=== PATIENT | female | born 1985 | race Caucasian/White ===

== ENCOUNTER 2021-09-16 14:52 | Outpatient (CLI) | payer OTHER, SELFPAY ==
[2021-09-16 15:33] LABS: Basophils Absolute Auto 0.1 K/mm3 (0.0-0.1); Basophils Percent Auto 0.6 % (0.2-1.2); Eosinophils Absolute Auto 0.3 K/mm3 (0-0.3); Eosinophils Percent Auto 2.8 % (0-4.4); Hematocrit 38.4 % (37.0-47.0); Hemoglobin 12.7 g/dL (12.0-15.0); Immature Granulocyte Absolute 0.02 K/mm3 (0.00-0.031); Immature Granulocyte Percent A 0.2 % (0-0.5); Lymphocytes Absolute Auto 2.51 K/mm3 (0.9-3.2); Mean Corpuscular HGB Conc 33.1 g/dl (32-36); Mean Corpuscular Hemoglobin 31.4 pg (26-34); Mean Corpuscular Volume 94.8 fl (80-100); Mean Platelet Volume 9.9 fl (7.4-10.4); Monocytes Absolute Auto 0.5 K/mm3 (0.1-0.6); Monocytes Percent Auto 5.7 % (2.6-8.5); Neutrophils Absolute Auto 5.6 K/mm3 (1.3-6.7); Neutrophils Percent Auto 62.7 % (45.5-73.1); Platelet Count Result 234 k/mm3 (150-375); Red Blood Count 4.05 M/mm3 (4.2-5.4); Red Cell Distribution Width 11.7 % (11.5-14.5)
[2021-09-16 16:00] LABS: Iron 69 ug/dL (37-170)
[2021-09-16 16:09] LABS: Percent Iron Saturation 18 % (20-50)
[2021-09-16 16:22] LABS: Erythrocyte Sedimentation Rate 23 mm/hr (0-20)
[2021-09-16 16:26] LABS: Thyroid Stimulating Hormone 0.908 uIU/mL (0.465-4.680)
[2021-09-16 16:38] LABS: Free T4 Free Thyroxine 0.72 ng/mL (0.78-2.19)
[2021-09-16 16:43] LABS: Vitamin D 25 Hydroxy 36.9 ng/mL
[2021-09-19 07:28] LABS: LH <0.2 mIU/mL (***); Progesterone 0.4 ng/mL (***)
[2021-09-20 07:12] LABS: Thyroid Peroxidase Antibodies <1 IU/mL (<9)
[2021-09-22 21:47] LABS: Estradiol, Ultrasensitive 4 pg/mL
== END 2021-09-16 14:53 | disposition home or self-care (01) ==
LOC: ANHLAB 14:55
PROVIDERS: PCP Nurse Practitioner Adult Health; Visit Provider Nurse Practitioner Adult Health
DX: R63.5 Abnormal weight gain (principal); R61 Generalized hyperhidrosis; R53.81 Other malaise
CPT/HCPCS: 36415; 82306; 82670; 82728; 83001; 83002; 83540; 83550; 84144; 84439; 84443; 85025; 85652; 86376

== ENCOUNTER 2021-11-22 15:05 | Outpatient (CLI) | payer OTHER, SELFPAY ==
[2021-11-22 15:28] LABS: Basophils Percent Auto 0.4 % (0.2-1.2); Eosinophils Absolute Auto 0.2 K/mm3 (0-0.3); Eosinophils Percent Auto 2.7 % (0-4.4); Hematocrit 36.2 % (37.0-47.0); Hemoglobin 12.4 g/dL (12.0-15.0); Immature Granulocyte Absolute 0.04 K/mm3 (0.00-0.031); Immature Granulocyte Percent A 0.4 % (0-0.5); Lymphocytes Absolute Auto 2.77 K/mm3 (0.9-3.2); Lymphocytes Percent Auto 30.8 % (18.3-44.2); Mean Corpuscular HGB Conc 34.3 g/dl (32-36); Mean Corpuscular Hemoglobin 31.1 pg (26-34); Mean Corpuscular Volume 90.7 fl (80-100); Mean Platelet Volume 9.7 fl (7.4-10.4); Monocytes Absolute Auto 0.5 K/mm3 (0.1-0.6); Monocytes Percent Auto 5.9 % (2.6-8.5); Neutrophils Absolute Auto 5.4 K/mm3 (1.3-6.7); Neutrophils Percent Auto 59.8 % (45.5-73.1); Platelet Count Result 241 k/mm3 (150-375); Red Blood Count 3.99 M/mm3 (4.2-5.4); Red Cell Distribution Width 11.6 % (11.5-14.5)
[2021-11-22 15:37] LABS: Add Urine Microscopic? YES; Appearance Urine Clear (Clear); Bacteria Urine Trace /hpf; Bilirubin Urine Negative (Negative); Blood Urine 2+ (Negative); Color Urine Yellow (Yellow); Glucose Urine UA Negative (Negative); Ketones Urine Negative (Negative); Leukocyte Esterase Ur 2+ LEU/UL (Negative); Mucus Urine Rare /lpf; Nitrate Urine Negative (Negative); Protein Urine Negative (Negative); RBC Urine 21-50 /hpf (0-2); Squamous Epithelial Cell Urine Few /hpf (Few); Urobilinogen Urine Negative mg/dL (<2.0)
[2021-11-22 15:41] LABS: Alanine Aminotransferase 20 U/L (4-35); Albumin Level 4.3 g/dL (3.5-5.1); Alkaline Phosphatase 69 U/L (38-126); Anion Gap 10 mmol/L (8-16); Aspartate Amino Transferase 26 U/L (14-36); Bilirubin,Total 0.3 mg/dL (0.2-1.3); Blood Urea Nitrogen 16 mg/dL (7-17); Calcium 8.8 mg/dL (8.4-10.2); Carbon Dioxide 24 mmol/L (22-30); Chloride 104 mmol/L (98-107); Estimated Glomerular Filt Rate > 60; Glucose 112 mg/dL (65-110); Potassium 3.8 mmol/L (3.4-5.0); Sodium 138 mmol/L (137-145)
[2021-11-22 15:51] LABS: Hemoglobin A1C 5.3 % (<5.7)
[2021-11-22 16:29] LABS: Vitamin D 25 Hydroxy 34.8 ng/mL
[2021-11-22 16:39] LABS: Iron 66 ug/dL (37-170)
[2021-11-22 16:46] LABS: Folic Acid 13.1 ng/mL (2.76->20); Percent Iron Saturation 16 % (20-50)
[2021-11-22 16:55] LABS: Free T4 Free Thyroxine 0.62 ng/mL (0.78-2.19)
== END 2021-11-22 15:06 | disposition home or self-care (01) ==
PROVIDERS: PCP Nurse Practitioner Adult Health; Visit Provider Nurse Practitioner Adult Health
DX: E53.8 Deficiency of other specified B group vitamins (principal); R20.2 Paresthesia of skin; R63.1 Polydipsia; R39.9 Unspecified symptoms and signs involving the genitourinary system; R53.81 Other malaise
CPT/HCPCS: 36415; 80053; 81001; 82306; 82607; 82728; 82746; 83036; 83540; 83550; 83735; 84439; 84443; 85025

== ENCOUNTER 2021-12-13 17:13 | Emergency (ER) | payer OTHER, SELFPAY ==
[2021-12-13] VITALS (12 sets, daily range): BP systolic 118–124; BP diastolic 76–86; PULSE 61–89; RESP 11–24; TEMP 36.6–36.9; O2SAT 98–100
--- NOTE | ~2021-12-13 | XR_ITS ---
EXAMINATION: XR chest 2V EXAM DATE: 12/13/2021 18:02 INDICATION: CHEST TIGHTNESS,COVID+,11/23,DIZZY . TECHNIQUE: Frontal and lateral projections of the chest obtained and reviewed. There is no prior rut dy for comparison. FINDINGS: The lungs are clear. There are no pleural effusions. The cardiomediastinal silhouette is within normal limits. There is no pneumothorax suspected. The bones and soft tissues are unremarkab le. There are cholecystectomy clips. IMPRESSION: No acute cardiopulmonary findings. Reviewed, dictated and finalized at location G. [facility]
--- NOTE | ~2021-12-13 | CT_ITS ---
EXAMINATION: CTA chest PE protocol EXAM DATE: 12/13/2021 18:46 INDICATION: chest pain, elevated dimer . TECHNIQUE: Spiral CTA of the chest (pulmonary arteries) was performed with 100 cc Omnipaque 350 intr avenous contrast injection. Images were acquired during the pulmonary arterial phase. Coronal maxi mum intensity projection 3D-reconstructions were created by the technologist on dedicated workstation . Axial, coronal and sagittal reformatted images were reviewed. The dose-length product (DLP) for t his examination was 221.98 mGy-cm. The exposure was tailored according to patient size (auto mA exp osure control), and iterative reconstruction (ASIR) was used as additional dose reduction technique. There is no prior study for comparison. FINDINGS: Pulmonary arteries are well opacified and without intraluminal filling defects. No thora cic aortic dissection. The lungs are clear. There are no pleural or pericardial effusions. Trach eobronchial tree is patent. There is no mediastinal, hilar or axillary lymphadenopathy. There is no pneumothorax. Heart normal in size. No evidence of coronary arterial calcification. There are cholecystectomy clips. There is thoracic spondylosis without osteoblastic or osteolytic lesions tanner ntified. IMPRESSION: 1. Unremarkable CT pulmonary examination. Reviewed, dictated and finalized at location G. J2EE CONSULTANT
--- NOTE | 2021-12-13 17:31 | ECG_ITS ---
Measurements Intervals [place] Rate: 62 P: 49 WA: 135 QRS: 69 QRSD: 77 T: 47 QT: 457 QTc: 467 Interpretive Statements SINUS RHYTHM BASELINE ARTIFACT- I, III, AVR, AVL NORMAL ECG Electronically Signed On 12-13-2021 20:39:35 [employer] by Arnaldo Trinidad D.O.
--- NOTE | 2021-12-13 17:37 | ED.CHESTPAIN ---
HPI - Chest Pain General Chief Complaint: Chest Pain Stated Complaint: COVID+ URI,CHEST TIGHTNESS Time Seen by Provider: 12/13/21 17:37 Source: patient Mode of arrival: ambulatory Limitations: no limitations History of Present Illness HPI narrative: Patient is a previously healthy 36-year-old female who presents for evaluation of chest pressure, dizziness. Patient states that she awakened this morning with a dull, aching chest pressure over the center of her chest. Pain has been present and constant for the past 8 hours. No radiation to the jaw, neck, shoulders, back or lower flanks. Patient does state that when she takes a deep breath she feels left-sided chest pain. She feels mildly short of breath with exertion. No dizziness currently. When she was experiencing dizziness, she denied any room spinning sensation. No vision changes, nausea or vomiting. Patient reports she had a positive Covid test on November 23, has had loss of sense of taste and smell since that time. She never required hospitalization for Covid. This is her first ER visit for her symptoms. Patient states that prior to her Covid diagnosis she was seen by her primary care physician who diagnosed her with hypothyroidism and had ordered a thyroid ultrasound which she has not had yet. Patient denies any fever, chills. She reports productive cough, rhinorrhea, lingering congestion. She denies sore throat. No nausea, vomiting or abdominal pain. No rashes. No dysuria or hematuria Related Data Allergies Allergy/AdvReac Type Severity Reaction Status Date / Time Penicillins Allergy Hives Verified 10/02/20 09:51 Review of Systems Review of Systems: CONSTITUTIONAL: Denies fever, chills, or sweats. EYES: Denies visual changes, redness, or discharge. ENT: Reports rhinorrhea, congestion CARDIOVASCULAR: Reports central chest pain, left-sided chest pain without palpitations, denies calf or leg edema RESPIRATORY: Reports cough and shortness of breath GASTROINTESTINAL: Denies abdominal pain, nausea, vomiting, or diarrhea. GENITOURINARY: Denies dysuria or hematuria. SKIN: Denies rash or itching. MUSCULOSKELETAL: Denies back pain, joint pain, or myalgia. NEUROLOGIC: Denies headache, numbness, or weakness. FOR[facility]LY [facility] Past Medical History Medical History (Updated 12/13/21 @ 19:02 by Marianne Harvey MD) Cholecystectomy planned 2009 History of miscarriage 2014 Surgical History Surgical History (Updated 10/02/20 @ 09:52 by Coreen Espinoza) H/O dilation and curettage 2014 Family History Family History (Updated 10/02/20 @ 09:53 by Coreen Espinoza) Grandparent Diabetes mellitus Cerebrovascular accident Mother Hypertension Social History Social History (Updated 10/02/20 @ 09:53 by Coreen Espinoza) Smoking status: Never smoker Alcohol intake: never Substance use: never Exam Narrative: GENERAL: Awake, alert, conversant HEAD: Normocephalic, atraumatic. EYES: 2+ PERRLA and EOMI. ENT: Nares clear, no rhinorrhea or epistaxis. Mucous membranes moist. NECK: Supple. CHEST: No respiratory distress, breathing even and non labored, no chest wall tenderness HEART: Regular rate, sinus rhythm ABDOMEN:Non distended, non tender EXTREMITIES: Normal range of motion. No edema.No calf tenderness. SKIN: Warm, dry, no rash. NEURO:No focal deficits. Alert and oriented x3 Course Vital Signs Vital signs: Vital Signs Temperature 36.9 C 12/13/21 17:17 Pulse Rate 73 12/13/21 17:17 Respiratory Rate 16 12/13/21 17:17 Blood Pressure 122/77 12/13/21 17:17 Pulse Oximetry 99 12/13/21 17:17 Temperature 36.6 C 12/13/21 17:30 Pulse Rate 89 12/13/21 18:02 Respiratory Rate 24 H 12/13/21 18:02 Blood Pressure 124/86 12/13/21 17:47 Pulse Oximetry 99 12/13/21 18:02 MDM - Chest Pain MDM Narrative Medical decision making narrative: Patient presenting for evaluation of chest pain that has been present for over 8 hours at the time of
--- NOTE | 2021-12-13 17:40 | PC.NURSE ---
Called lab and spoke to Tonja to add on D-Dimer, BNP
--- NOTE | 2021-12-13 17:44 | PC.NURSE ---
EDP at bedside
[2021-12-13 17:46] LABS: Basophils Absolute Auto 0.1 K/mm3 (0.0-0.1); Basophils Percent Auto 0.5 % (0.2-1.2); Eosinophils Absolute Auto 0.1 K/mm3 (0-0.3); Eosinophils Percent Auto 1.4 % (0-4.4); Hematocrit 36.4 % (37.0-47.0); Hemoglobin 12.5 g/dL (12.0-15.0); Immature Granulocyte Absolute 0.03 K/mm3 (0.00-0.031); Immature Granulocyte Percent A 0.3 % (0-0.5); Lymphocytes Absolute Auto 2.87 K/mm3 (0.9-3.2); Lymphocytes Percent Auto 29.3 % (18.3-44.2); Mean Corpuscular HGB Conc 34.3 g/dl (32-36); Mean Corpuscular Hemoglobin 30.9 pg (26-34); Mean Corpuscular Volume 89.9 fl (80-100); Mean Platelet Volume 10.3 fl (7.4-10.4); Monocytes Absolute Auto 0.6 K/mm3 (0.1-0.6); Monocytes Percent Auto 6.4 % (2.6-8.5); Neutrophils Absolute Auto 6.1 K/mm3 (1.3-6.7); Neutrophils Percent Auto 62.1 % (45.5-73.1); Platelet Count Result 249 k/mm3 (150-375); Red Blood Count 4.05 M/mm3 (4.2-5.4); Red Cell Distribution Width 11.6 % (11.5-14.5); White Blood Count 9.8 K/mm3 (4.5-10.0)
[2021-12-13] MEDS: ASPIRIN 81 MG CHEWABLE TABLET 324 MG PO (17:48)
[2021-12-13 17:56] LABS: INR 0.9; Prothrombin Time 12.1 Seconds (11.1-14.7)
[2021-12-13 17:57] LABS: Alanine Aminotransferase 21 U/L (4-35); Albumin Level 4.5 g/dL (3.5-5.1); Alkaline Phosphatase 66 U/L (38-126); Anion Gap 6 mmol/L (8-16); Aspartate Amino Transferase 24 U/L (14-36); Bilirubin,Total 0.5 mg/dL (0.2-1.3); Blood Urea Nitrogen 15 mg/dL (7-17); Calcium 9.6 mg/dL (8.4-10.2); Carbon Dioxide 24 mmol/L (22-30); Chloride 108 mmol/L (98-107); Estimated CRCL calculation 76 ml/min; Estimated Glomerular Filt Rate > 60; Glucose 114 mg/dL (65-110); Lipase 126 U/L (23-300); Partial Thromboplastin Time 26.8 SECONDS (22.3-36.8); Sodium 138 mmol/L (137-145)
[2021-12-13 17:59] LABS: D Dimer 0.49 ug/mL (<0.48)
[2021-12-13 18:08] LABS: NT Pro B Type Natriuretic Pept 99 pg/mL (5-100)
[2021-12-13 18:09] LABS: Troponin I < 0.012 ng/mL (0.000-0.034)
== END 2021-12-13 19:28 | disposition home or self-care (01) ==
PROVIDERS: Emergency Provider Emergency Medicine; PCP Nurse Practitioner Adult Health
DX: R07.89 Other chest pain (principal); E03.9 Hypothyroidism, unspecified; Z86.16 Personal history of COVID-19
CPT/HCPCS: 36415; 71046; 71275; 80053; 81025; 83690; 83880; 84443; 84484; 85025; 85380; 85610; 85730; 93005; 99284; A9270; Q9967

== ENCOUNTER 2021-12-30 11:10 | Outpatient (CLI) | payer OTHER, SELFPAY ==
--- NOTE | ~2021-12-30 | US_ITS ---
EXAMINATION: US thyroid EXAM DATE: 12/30/2021 11:39 INDICATION: Abnormal thyroid function. TECHNIQUE: Multiple grayscale and Doppler images of the thyroid were obtained (by a technologist who performed the scan) and subsequently reviewed. Individual nodules and recommendations may be reporte d in accordance with TI-RADS system as designated by the 2017 ACR White Paper TI-RADS committee. The re is no prior study for comparison. FINDINGS: The right thyroid lobe measures 4.5 x 1.7 x 1.1 cm, the left measuring 4.2 x 1.5 x 1.2 cm. Relatively homogeneous thyroid echogenicity. Couple of small thyroid nodules measuring up to 4 mm, not likely c linically significant. IMPRESSION: 1. Unremarkable thyroid ultrasound exam. Reviewed, dictated and finalized at location G. WALS REPRESENTATIVE
== END 2021-12-30 11:11 | disposition home or self-care (01) ==
LOC: ANHIMG 11:16
PROVIDERS: PCP Nurse Practitioner Adult Health; Visit Provider Nurse Practitioner Adult Health
DX: R94.6 Abnormal results of thyroid function studies (principal)
CPT/HCPCS: 76536

== ENCOUNTER 2022-01-13 09:53 | Outpatient (CLI) | payer OTHER, SELFPAY ==
--- NOTE | 2022-01-13 11:00 | NEURO_ITS ---
Impression: # Complains of numbness of upper and lower extremities. # Normal nerve conduction study of upper and lower extremities. # Normal needle/EMG exam. # Possibility of higher involvement cannot be ruled out. Nerve Conduction Studies Anti Sensory Summary Table Stim Site NR Peak (ms) P-T Amp (?V) Site1 Site2 Delta-P (ms) Dist (cm) Zaki (m/s) Left Median Anti Sensory (2-3nd Digit) Wrist 2.4 74.3 Wrist 2-3nd Digit 2.4 14.0 58 Wrist 2.4 89.5 Wrist 2-3nd Digit 2.4 14.0 58 Right Median Anti Sensory (2-3nd Digit) Wrist 2.3 81.8 Wrist 2-3nd Digit 2.3 14.0 61 Wrist 2.2 77.7 Wrist 2-3nd Digit 2.3 14.0 61 Left Radial Anti Sensory (Base 1st Digit) Wrist 1.7 33.4 Wrist Base 1st Digit 1.7 0.0 Right Radial Anti Sensory (Base 1st Digit) Wrist 2.3 44.8 Wrist Base 1st Digit 2.3 0.0 Left Sup Fibular Anti Sensory (Ant Lat Mall) 14 cm 3.3 13.6 14 cm Ant Lat Mall 3.3 16.0 48 Right Sup Fibular Anti Sensory (Ant Lat Mall) 14 cm 3.5 13.7 14 cm Ant Lat Mall 3.5 16.0 46 Left Sural Anti Sensory (Lat Mall) Calf 3.4 25.1 Calf Lat Mall 3.4 16.0 47 Right Sural Anti Sensory (Lat Mall) Calf 3.9 15.9 Calf Lat Mall 3.9 16.0 41 Left Ulnar Anti Sensory (5th Digit) Wrist 1.9 64.7 Wrist 5th Digit 1.9 14.0 74 Right Ulnar Anti Sensory (5th Digit) Wrist 1.8 42.2 Wrist 5th Digit 1.8 14.0 78 Motor Summary Table Stim Site NR Onset (ms) O-P Amp (mV) Site1 Site2 Delta-0 (ms) Dist (cm) Zaki (m/s) Left Lateral Plantar Motor (ADM) Med Mall 4.5 2.8 Right Lateral Plantar Motor (ADM) Med Mall 4.4 1.5 Left Median Motor (Abd Poll Brev) Wrist 2.7 9.1 Elbow Wrist 4.1 26.0 63 Elbow 6.8 7.6 Right Median Motor (Abd Poll Brev) Wrist 2.5 7.5 Elbow Wrist 3.8 26.0 68 Elbow 6.3 3.7 Left Peroneal Motor (Vastus Med) Ankle 4.4 1.6 Popit Ankle 8.1 39.0 48 Popit 12.5 0.9 Right Peroneal Motor (Vastus Med) Ankle 4.7 2.0 Popit Ankle 6.4 35.0 55 Popit 11.1 1.5 Left Tibial Motor (Abd Johansen Brev) Ankle 4.1 2.2 Knee Ankle 7.5 40.0 53 Knee 11.6 2.3 Right Tibial Motor (Abd Johansen Brev) Ankle 4.0 3.8 Knee Ankle 7.9 39.0 49 Knee 11.9 3.9 Left Ulnar Motor (Abd Dig Minimi) Wrist 2.6 5.3 A Elbow Wrist 4.5 29.0 64 A Elbow 7.1 3.7 Right Ulnar Motor (Abd Dig Minimi) Wrist 2.3 4.3 A Elbow Wrist 4.2 28.0 67 A Elbow 6.5 3.8 F Wave Studies NR F-Lat (ms) L-R F-Lat (ms) Left Median (Mrkrs) (Abd Poll Brev) 25.32 0.44 Right Median (Mrkrs) (Abd Poll Brev) 25.75 0.44 Left Peroneal (Mrkrs) (EDB) 46.76 0.73 Right Peroneal (Mrkrs) (EDB) 47.49 0.73 Left Tibial (Mrkrs) (Abd Hallucis) 47.35 0.08 Right Tibial (Mrkrs) (Abd Hallucis) 47.27 0.08 Left Ulnar (Mrkrs) (Abd Dig Min) 24.78 1.00 Right Ulnar (Mrkrs) (Abd Dig Min) 25.79 1.00 EMG Side Muscle Nerve Root Ins Act Fibs Amp Dur Recrt Comment Right 1stDorInt Ulnar C8-T1 Nml Nml Nml Nml Nml Right Ext Indicis Radial (Post Int) C7-8 Nml Nml Nml Nml Nml Right Ext Digitorum Radial (Post Int) C7-8 Nml Nml Nml Nml Nml Right BrachioRad Radial C5-6 Nml Nml Nml Nml Nml Right PronatorTeres Median C6-7 Nml Nml
== END 2022-01-13 09:54 | disposition home or self-care (01) ==
PROVIDERS: PCP Nurse Practitioner Adult Health; Visit Provider Nurse Practitioner Adult Health
DX: R20.2 Paresthesia of skin (principal)
CPT/HCPCS: 95886; 95913

== ENCOUNTER 2022-03-16 13:30 | Outpatient (CLI) | payer OTHER, SELFPAY ==
[2022-03-16 14:24] LABS: Hematocrit 38.2 % (37.0-47.0); Hemoglobin 12.5 g/dL (12.0-15.0); Mean Corpuscular HGB Conc 32.7 g/dl (32-36); Mean Corpuscular Hemoglobin 30.9 pg (26-34); Mean Corpuscular Volume 94.3 fl (80-100); Mean Platelet Volume 10.2 fl (7.4-10.4); Platelet Count Result 226 k/mm3 (150-375); Red Blood Count 4.05 M/mm3 (4.2-5.4); Red Cell Distribution Width 11.6 % (11.5-14.5); White Blood Count 8.3 K/mm3 (4.5-10.0)
[2022-03-16 14:27] LABS: Alanine Aminotransferase 26 U/L (4-35); Albumin Level 4.4 g/dL (3.5-5.1); Alkaline Phosphatase 72 U/L (38-126); Anion Gap 9 mmol/L (8-16); Aspartate Amino Transferase 31 U/L (14-36); Bilirubin,Total 0.5 mg/dL (0.2-1.3); Blood Urea Nitrogen 15 mg/dL (7-17); Calcium 9.1 mg/dL (8.4-10.2); Carbon Dioxide 24 mmol/L (22-30); Chloride 102 mmol/L (98-107); Estimated Glomerular Filt Rate > 60; Glucose 145 mg/dL (65-110); Potassium 3.8 mmol/L (3.4-5.0); Sodium 135 mmol/L (137-145)
[2022-03-16 14:57] LABS: Thyroid Stimulating Hormone 0.727 uIU/mL (0.465-4.680)
[2022-03-16 15:37] LABS: Folic Acid > 20.0 ng/mL (2.76->20)
[2022-03-19 06:46] LABS: Thyroid Peroxidase Antibodies <1 IU/mL (<9)
== END 2022-03-16 13:31 | disposition home or self-care (01) ==
PROVIDERS: PCP Nurse Practitioner Adult Health; Visit Provider Nurse Practitioner Adult Health
DX: R23.2 Flushing (principal); E53.8 Deficiency of other specified B group vitamins
CPT/HCPCS: 36415; 80053; 82607; 82746; 84439; 84443; 85027; 86376

== ENCOUNTER 2022-03-30 09:53 | Outpatient (CLI) | payer OTHER, SELFPAY ==
[2022-03-30 10:55] LABS: Hemoglobin A1C 5.2 % (<5.7)
== END 2022-03-30 09:54 | disposition home or self-care (01) ==
LOC: ANHLAB 09:56
PROVIDERS: PCP Nurse Practitioner Adult Health; Visit Provider Nurse Practitioner Adult Health
DX: R73.9 Hyperglycemia, unspecified (principal)
CPT/HCPCS: 36415; 83036

== ENCOUNTER 2024-01-15 00:22 | Emergency (ER) | payer OTHER, SELFPAY ==
[2024-01-15 00:27] VITALS: BP 135/79; PULSE 81; RESP 17; TEMP 36.3; O2SAT 100
[2024-01-15] MEDS: SODIUM CHLORIDE 0.9% IV 1,000 ML 999 ML IV CONT (01:04)
--- NOTE | 2024-01-15 01:04 | ED.GENADULT ---
[facility] - General Adult General Chief complaint: Nausea/Vomiting/Diarrhea Stated complaint: n/v after taking pain meds Time Seen by Provider: 01/15/24 00:43 Source: patient Mode of arrival: ambulatory Limitations: no limitations History of Present Illness HPI narrative: This is a 38-year-old female who presents to the ED for chief complaint of nausea vomiting onset at 5:00 p.m. this evening. Patient reports that she had bunionectomy a couple of days ago. She has been taking Percocet 5 mg as prescribed. She called the office today because they were only helping for a couple of hours at a time. They instructed her to take 2 doses of the Percocet 5. She reports after this she had extreme nausea and numerous episodes of vomiting. Reports 18 episodes of vomiting without bleeding. Denies diarrhea. Reports some abdominal pain and cramping due to the vomiting. Denies fevers, chills or any further sites of pain. Related Data Home Medications Medication Instructions Recorded Confirmed bupropion HCl 150 mg 24 hr tablet, 150 mg PO QAM 02/10/23 extended release (Wellbutrin XL) Allergies Allergy/AdvReac Type Severity Reaction Status Date / Time Penicillins Allergy Hives Verified 01/15/24 00:30 Review of Systems Review of Systems: All systems as dictated in [facility] Past Medical History Medical History Cholecystectomy planned 2009 History of miscarriage 2014 Surgical History Surgical History H/O dilation and curettage 2014 Family History Family History Grandparent Diabetes mellitus Cerebrovascular accident Mother Hypertension Social History Social History (Updated 02/10/23 @ 12:28 by Margarita Bradley MA) Smoking status: Never smoker Alcohol intake: never Substance use: never Lack of Transportation: No Lack of Food: Never True Current Housing: I Have Housing Concerned About Future Housing: No Difficulty Paying Gas/Electric Bills: No Difficulty Paying for Meds: No Currently Unemployed: YES Education: Trade/Vocational Certificate Difficulty w/ Childcare or Family Care: No Living arrangements: with family Occupation/Education: occupation Gender identity (if verbalized by the patient): Female Sexual Orientation (if Verbalized by the Patient): Straight or Heterosexual Spiritual care concerns: No Agree to blood products: Yes Exam Narrative: GENERAL: Well-appearing, well-nourished, and in no acute distress. HEAD: Normocephalic, atraumatic. EYES: PERRLA and EOMI. ENT: Nares clear, no rhinorrhea or epistaxis. Mucous membranes moist. Oropharynx without tonsillar hypertrophy exudate or other lesions. NECK: Supple. No adenopathy or masses. CHEST: No respiratory distress. Clear to auscultation. No wheezes rales or rhonchi HEART: Regular rate and rhythm. No murmur heard. Normal peripheral pulses. ABDOMEN: Soft, nontender, nondistended, normal active bowel sounds. MSK: Normal range of motion. No edema. SKIN: Warm, dry, no rash. NEURO: Alert and oriented x3. No focal deficits. PSYCH: Normal mood and affect. Course Vital Signs Vital signs: Vital Signs Temperature 97.3 F L 01/15/24 00:27 Pulse Rate 81 01/15/24 00:27 Respiratory Rate 17 01/15/24 00:27 Blood Pressure 135/79 01/15/24 00:27 Pulse Oximetry 100 01/15/24 00:27 Oxygen Delivery Room Air 01/15/24 00:27 Temperature 97.3 F L 01/15/24 00:27 Pulse Rate 81 01/15/24 00:27 Respiratory Rate 17 01/15/24 00:27 Blood Pressure 135/79 01/15/24 00:27 Pulse Oximetry 100 01/15/24 00:27 Oxygen Delivery Room Air 01/15/24 00:27 Medical Decision Making MDM Narrative Medical decision making narrative: This is a 38-year-old female who presents to the ED for drug induced nausea and vomiting. Gail
[2024-01-15 01:05] LABS: Basophils Percent Auto 0.3 % (0.2-1.2); Eosinophils Percent Auto 0.2 % (0-4.4); Hematocrit 38.5 % (37.0-47.0); Hemoglobin 12.8 g/dL (12.0-15.0); Immature Granulocyte Absolute 0.02 K/mm3 (0.00-0.031); Immature Granulocyte Percent A 0.2 % (0-0.5); Lymphocytes Absolute Auto 1.54 K/mm3 (0.9-3.2); Lymphocytes Percent Auto 15.5 % (18.3-44.2); Mean Corpuscular HGB Conc 33.2 g/dl (32-36); Mean Corpuscular Hemoglobin 31.1 pg (26-34); Mean Corpuscular Volume 93.4 fl (80-100); Monocytes Absolute Auto 0.4 K/mm3 (0.1-0.6); Monocytes Percent Auto 3.9 % (2.6-8.5); Neutrophils Percent Auto 79.9 % (45.5-73.1); Platelet Count Result 186 k/mm3 (150-375); Red Blood Count 4.12 M/mm3 (4.2-5.4); Red Cell Distribution Width 11.7 % (11.5-14.5)
[2024-01-15] MEDS: ONDANSETRON INJ 4 MG/2 ML VIAL IV PUSH (01:05)
[2024-01-15] MEDS: KETOROLAC 15 MG/ML VIAL (*BKC) IV PUSH (01:05)
[2024-01-15 01:31] LABS: Alanine Aminotransferase 133 U/L (6-35); Albumin Level 4.2 g/dL (3.5-5.1); Alkaline Phosphatase 132 U/L (38-126); Anion Gap 7 mmol/L (8-16); Aspartate Amino Transferase 111 U/L (14-36); Bilirubin,Total 0.8 mg/dL (0.2-1.3); Blood Urea Nitrogen 18 mg/dL (7-17); Calcium 9.1 mg/dL (8.4-10.2); Carbon Dioxide 23 mmol/L (22-30); Chloride 103 mmol/L (98-107); Estimated CRCL calculation 75 ml/min; Estimated Glomerular Filt Rate > 60; Glucose 107 mg/dL (65-110); Lactic Acid Reflex 0.8 mmol/L (0.7-2.0); Potassium 3.9 mmol/L (3.4-5.0); Sodium 133 mmol/L (137-145)
--- NOTE | 2024-01-15 02:00 | PC.NURSE ---
Pt given 2 packets of vida crackers and a starry to drink.
[2024-01-15 02:51] VITALS: BP 129/89; PULSE 70; RESP 16; O2SAT 98
== END 2024-01-15 02:53 | disposition home or self-care (01) ==
PROVIDERS: Emergency Provider Physician Assistant; PCP Physician Assistant
DX: R11.2 Nausea with vomiting, unspecified (principal); T50.995A Adverse effect of other drugs, medicaments and biological substances, initial encounter; Z90.49 Acquired absence of other specified parts of digestive tract
CPT/HCPCS: 36415; 80048; 80076; 83605; 85025; 96361; 96374; 96375; 99284; J1885; J2405; J7030

== ENCOUNTER 2024-02-10 12:35 | Emergency (ER) | payer OTHER, SELFPAY ==
[2024-02-10 12:49] VITALS: BP 118/67; PULSE 91; RESP 18; TEMP 36.6; O2SAT 99
--- NOTE | 2024-02-10 13:44 | ED.WOUNDLAC ---
HPI - Wound/Laceration General Chief Complaint: Wound/Laceration Stated Complaint: surgical wound check Time Seen by Provider: 02/10/24 13:44 Source: patient, RN notes reviewed and old records reviewed Mode of arrival: ambulatory Limitations: no limitations History of Present Illness HPI narrative: 38-year-old female presents to the [facility] with concerns for a surgical wound infection. Patient reports that she had bunion surgery 4 weeks ago, January 11. States 2 weeks ago she was treated for infection to the wound site with Bactrim, only complaining 3 days worth because it was upsetting her stomach and making her nauseous. Last Monday it started looking infected again, restarted the Bactrim and yesterday started applying gentamicin ointment. States that she tried calling the surgeon on but she is not available. Patient states she does have an appointment Monday with her for [facility] complaints of increased pain, unable to wear the her walking boot, unable to bear weight. Treatments prior to arrival: other (Gentamicin ointment, Bactrim) Related Data Home Medications Medication Instructions Recorded Confirmed bupropion HCl 150 mg 24 hr tablet, 150 mg PO QAM 02/10/23 extended release (Wellbutrin XL) loratadine 10 mg tablet (Claritin) 10 mg PO DAILY 02/10/24 02/10/24 Allergies Allergy/AdvReac Type Severity Reaction Status Date / Time Penicillins Allergy Hives Verified 02/10/24 13:23 Review of Systems Review of Systems: All systems reviewed & are unremarkable except as noted in HPI and below Constitutional: Constitutional: Reports no additional constitutional complaints Eyes: Eyes: Reports no additional eye complaints ENT: Reports system reviewed and no additional complaints, except as documented Cardiovascular: Cardiovascular: Reports no additional cardiovascular complaints, Denies chest pain and Denies dyspnea Respiratory: Respiratory: Reports no additional respiratory complaints, Denies chest congestion, Denies cough and Denies dyspnea Gastrointestinal: Gastrointestinal: Reports no additional gastrointestinal complaints, Denies abdominal pain, Denies nausea and Denies vomiting Musculoskeletal: Musculoskeletal: Reports as per HPI and Reports other (Right foot) Integumentary/Breasts: Skin/Breast: Reports as per HPI, Reports swelling, Reports erythema, Reports skin swelling and Reports wounds Neurologic: Reports system reviewed and no additional complaints, except as documented Psychiatric: Psychiatric: Reports no additional psychiatric complaints Allergic/Immunologic: Allergic/Immunologic: Reports no additional allergic/immunologic complaints PMFSH Past Medical History Medical History Cholecystectomy planned 2009 History of miscarriage 2014 Surgical History Surgical History H/O dilation and curettage 2014 H/O foot surgery Bunionectomy 01/12/2024 Right foot Family History Family History Grandparent Diabetes mellitus Cerebrovascular accident Mother Hypertension Social History Social History Smoking status: Never smoker Alcohol intake: never Substance use: never Lack of Transportation: No Lack of Food: Never True Current Housing: I Have Housing Concerned About Future Housing: No Difficulty Paying Gas/Electric Bills: No Difficulty Paying for Meds: No Currently Unemployed: YES Education: Trade/Vocational Certificate Difficulty w/ Childcare or Family Care: No Living arrangements: with family Occupation/Education: occupation Gender identity (if verbalized by the patient): Female Sexual Orientation (if Verbalized by the Patient): Straight or Heterosexual Spiritual care concerns: No Agree to blood pro
== END 2024-02-10 14:05 | disposition short-term general hospital (02) ==
PROVIDERS: Emergency Provider Nurse Practitioner
DX: T81.49XA Infection following a procedure, other surgical site, initial encounter (principal); L03.115 Cellulitis of right lower limb
CPT/HCPCS: 99212; G0463

== ENCOUNTER 2024-12-11 08:42 | Emergency (ER) | payer OTHER, SELFPAY ==
--- NOTE | 2024-12-11 08:45 | ED_ITS ---
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 She has been taking [id number] medications with moderate relief. She reports worst of her symptoms are body aches and sore throat. She is not in any distress. She voices no other concerns or complaints today. She denies any injury or trauma Related Data Home Medications ?Medication ?Instructions ?Recorded ?Confirmed ?Last Taken ?Type bupropion HCl 150 mg 24 hr tablet, 150 mg PO QAM 02/10/23 Unknown History extended release (Wellbutrin XL) loratadine 10 mg tablet (Claritin) 10 mg PO DAILY 02/10/24 02/10/24 Unknown History Allergies Allergy/AdvReac Type Severity Reaction Status Date / Time Penicillins Allergy Mild Hives Verified 12/11/24 08:55 Review of Systems Review of Systems: All systems reviewed & are unremarkable except as noted in HPI and below Constitutional: Constitutional: Reports no additional constitutional complaints, Reports body ache(s), Reports chills, Reports headache(s) and Reports lethargy ENT: Reports system reviewed and no additional complaints, except as documented, Reports nasal congestion, Reports nasal discharge and Reports sore throat Cardiovascular: Cardiovascular: Reports no additional cardiovascular complaints Respiratory: Respiratory: Reports no additional respiratory complaints and Reports cough Gastrointestinal: Gastrointestinal: Reports no additional gastrointestinal complaints PMFSH Past Medical History Medical History Cholecystectomy planned 2009 History of miscarriage 2014 Surgical History Surgical History H/O foot surgery Bunionectomy 01/12/2024 Right foot H/O dilation and curettage 2014 Family History Family History Grandparent Diabetes mellitus Cerebrovascular accident Mother Hypertension Social History Social History Smoking status: Never smoker Alcohol intake: never Substance use: never Lack of Transportation: No Lack of Food: Never True Current Housing: I Have Housing Concerned About Future Housing: No Difficulty Paying Gas/Electric Bills: No Difficulty Paying for Meds: No Currently Unemployed: YES Education: Trade/Vocational Certificate Difficulty w/ Childcare or Family Care: No Living arrangements: with family Occupation/Education: occupation Gender identity (if verbalized by the patient): Female Sexual Orientation (if Verbalized by the Patient): Straight or Heterosexual Spiritual care concerns: No Agree to blood products: Yes Comments At the time of my signature, I reviewed and agree with the nursing past medical, surgical, social, and family history. There is no relevant family history pertinent to the patient complaint. Exam Const: General: cooperative, no acute distress, alert and awake Orientation/consciousness: oriented to person, oriented to place and oriented to time HENMT: Head: normal to inspection Ears: TM's normal bilaterally Mouth: Yes moist mucous membranes Throat: posterior oropharynx abnormal erythema Resp: Effort & Inspection: normal respiratory effort and able to speak in complete sentences Auscultation: clear to auscultation bilaterally, no crackles, no rales, no rhonchi and no wheezes Cardio: Palpation: normal PMI Rate: regular rate Rhythm: regular rhythm Heart sounds: S1 normal heart sound present and S2 normal heart sound present Neuro: General: oriented to person, oriented to place and oriented to time Cranial nerves: Yes CN's II-XII intact bilaterally Psych: Appearance: grossly normal Thought process: Normal thought process present Insight: Good insight present (Psych) Judgement: Good judgement present (Psych) Course Course Level of Care: [facility] Vital Signs Vital signs: Reviewed MDM - URI/Sore Throat MDM Narrative Medical decision making narrative: negative flu, negative COVID, negative strep. Culture pending. Symptoms likely viral in origin. Supportive care measures discussed. Discharge instructions reviewed with patient, as well as provided in writing per nursing staff. The instructions also include specific and strict return/GO TO THE ER as well as f/u information. All questions have been answered, and the patient deny any further questions with discharge and discharge plan. Some parts of this dictation were generated by voice recognition software and may contain typographical and/or grammatical inaccuracies. Differential Diagnosis Differential diagnosis: Likely upper respiratory infection, otitis media, sinusitis, viral infection, influenza and pharyngitis Medical Records Attestation: I reviewed the patient's medical records. Lab Data Attestation: I reviewed the patient's lab results. Discharge Plan Discharge Clinical Impression: Viral infection Patient Disposition: Home, Self-Care Condition: Stable Instructions: Antibiotic Form, Viral Syndrome (ED) Additional Instructions: use [id number] medications to treat your symptoms. Follow package instru ctions. Emergency department for new or worse symptoms, follow-up with primary care provider Patient Language: Barbadian Prescriptions: No Action loratadine [Claritin] 10 mg Tablet 10 mg PO DAILY bupropion HCl [Wellbutrin XL] 150 mg tablet extended release 24 hr 150 mg PO QAM norethindrone-e.estradiol-iron [Ladan Fe 12/02 (28)] 1 mg-20 mcg (21)/75 mg (7) tablet 1 tablet PO DAILY Qty: 84 0RF Follow-up/Referrals: Lokesh,Saray Garcia MD [Primary Care Provider] - Stand Alone Forms: Work/School Release IP Time of Disposition: 09:30
[2024-12-11 08:55] VITALS: BP 109/68; PULSE 69; RESP 18; TEMP 36.4; O2SAT 99
--- OUTSIDE RECORDS SUMMARY | 2024-12-11 09:03 | XMS_ITS | Referral Summary ---
Author Organization [facility] Healthcare Address [address] [place] [address] Care Team Providers Care Group Work Program Aide Name Role Phone Margarita Toledo Primary Care Provider [phone] Monse Leon DPM Unavailable [phone] Allergies Active Allergy Reactions Criticality Noted Date Comments Penicillins Hives Medium Reaction: Hives, Medications norethindrone ac-eth estradiol (12/02, ,) 1-20 mg-mcg per tablet take 1 tablet by oral route every day 0 0 7 Active buPROPion XL (WELLBUTRIN XL) 300 mg 24 hr tablet Take 1 tablet (300 mg total) by mouth daily 3 Active loratadine (CLARITIN) 10 mg tablet Take 1 tablet (10 mg total) by mouth daily Active mv-min/iron/folic /calcium/vitK (WOMEN'S MULTIVITAMIN ORAL) Take by mouth daily Active Lacto no.76/Bifido/FOS/ larch (WOMEN'S PROBIOTIC ORAL) Take by mouth daily Active diphenhydrAMINE 25 mg capsule Take 1 tablet/capsu le (25 mg total) by mouth every 6 (six) hours as needed for itching Active oxyCODONE-acetami nophen (PERCOCET) 5-325 mg per tabletIndications :Pain Take 1 tablet by mouth every 4 (four) hours as needed for pain 40 tablet 4 Active aspirin 325 mg tablet Take 1 tablet (325 mg total) by mouth daily 30 tablet 4 Active Active Problems Problem Noted Date Diagnosed Date Bunion of great toe of right foot 12/21/2023 Acquired hallux valgus of right foot 12/21/2023 Metatarsalgia of right foot 12/21/2023 Bunion of great toe of left foot 05/25/2023 Acquired hallux valgus of left foot 05/25/2023 Metatarsalgia of left foot 05/25/2023 Persistent headaches 10/11/2017 Abnormal x-ray of neck 10/11/2017 Acute left-sided low back pain without sciatica 09/29/2017 Acute pain of left shoulder 09/29/2017 Neck pain on left side 09/29/2017 Immunizations Name Administration Dates Next Due Influenza, Quadrivalent, Spl it, Preservative Free, Intramuscular 09/29/2017 Social History Tobacco Use Types Packs/Day Years Used Date Smoking Tobacco: Never Smokeless Tobacco: Never Tobacco Cessation:Counseling Given: Not Answered Alcohol Use Standard Drinks/Week Comments No 0 (1 standard drink = 0.6 oz pur e alcohol) AUDIT-C Answer Date Recorded Q1: How often do you have a drink containing alcohol? Never 01/12/2024 Q2: How many drinks containi ng alcohol do you have on a typical day when you are drinking? Patient does not drink Q3: How often do you have si x or more drinks on one occasion? Never 01/12/2024 Personal Safety Answer Date Recorded Have you ever been in or are you currently in a harmful physical or emotional relationship or is someone making you feel afraid or unsafe? 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 Gender Identity Not on file Sexual Orientation Not on file Last Filed Vital Signs Vital Sign Reading Time Taken Comments Blood Pressure 99/67 02/10/2024 8:00 PM CDT Pulse 79 02/10/2024 8:20 PM CDT Temperature 36.9 ??C (98.4 ??F) 02/10/2024 7:19 PM CD T Respiratory Rate 16 02/10/2024 7:14 PM CDT Oxygen Saturation 100% 02/10/2024 8:20 PM CDT Inhaled Oxygen Concentration - - Weight 61.2 kg (135 lb) 02/10/2024 7:14 PM CDT Height 165.1 cm (5' 5 ) 02/10/2024 7:14 PM CDT Body Mass Index 22.47 02/10/2024 7:14 PM CDT Plan of Treatment Not on file Medical Devices Implanted Type Area Nurses Educator Device Identifier Shelf Expiration Date Model / Serial / Lot [employer] Screw Bone Lapiplasty Select Ti Sk34 - [id number] Implanted:Qty: 1 on 06/16/2023 by Monse Leon DPM at [facility] Left: Foot [employer] [id number] 01/02/2028 SK34 / / [id number] [employer] Screw Bone Compression Cannulated Full Thread Locking Fastpitch 2.7mm Ti Sd22 - [id number] Implanted:Qty: 1 on 06/16/2023 by Monse Leon DPM at [facility] Left: Foot [employer] [id number] 02/29/2028 SD22 / / [id number] [employer] Screw Bone Compression Cannulated Full Thread Locking Fastpitch 2.7mm Ti Sd22 - [id number] Implanted:Qty: 1 on 06/16/2023 by Monse Leon DPM at [facility] Left: Foot [employer] [id number] 03/15/2028 SD22 / / [id number] [employer] Max Vpc 2.5mm 16mm Cannulated Compression Headless Full Thread [id number] - [id number] Implanted:Qty: 1 on 06/16/2023 by Monse Leon DPM at [facility] Left: Foot [employer] [id number] / / [employer] Screw Bone Compression Cannulated St Full Thread Locking Max Vpc 2.5x12mm Ti [id number] - [id number] Implanted:Qty: 1 on 06/16/2023 by Monse Leon DPM at [facility] Left: Foot [employer] [id number] / / [employer] Screw Bone Compression Cannulated St Full Thread Locking Max Vpc 2.5x12mm Ti [id number] - [id number] Implanted:Qty: 1 on 01/12/2024 by Monse Leon DPM at [facility] Right: Foot [employer] [id number] / / [employer] Screw Bone Compression Cannulated Full Thread Locking Fastpitch 2.7mm Ti Sd22 - [id number] Implanted:Qty: 1 on 01/12/2024 by Monse Leon, PAULINAM at [facility] Right: Foot [employer] 12/11/2028 SD22 / / [id number] [employer] Screw Bone Compression Cannulated Full Thread Locking Fastpitch 2.7mm Ti Sd22 - [id number] Implanted:Qty: 1 on 01/12/2024 by Monse Leon DPM at [facility] Right: Foot [employer] [id number] 12/11/2028 SD22 / / [id number] [employer] Screw Bone Lapiplasty Select Ti Sk34 - [id number] Implanted:Qty: 1 on 01/12/2024 by Monse Leon DPM at [facility] Right: Foot [employer] [id number] 06/13/2028 SK34 / / [id number] [employer] Max Vpc 2.5mm 16mm Cannulated Compression Headless Full Thread [id number] - [id number] Implanted:Qty: 1 on 01/12/2024 by Monse Leon, PAULINAM at [facility] Right: Foot [employer] [id number] / / Insurance IDPA Care Teams Group Work Program Aide Relationship Specialty Start Date End Date Margarita Toledo PA [address] [place] [address] PCP - General 06/05/23 Monse Leon, THERON [address] [place] [id number] Consulting Physician Foot and Ankle Surg 06/16/23
--- OUTSIDE RECORDS SUMMARY | 2024-12-11 09:03 | XMS_ITS | Clinical Summary ---
Author Organization [facility] Address [address] [place] [address]. [place] [address] [place] [address] Care Team Providers Care Galley Hand Name Role Phone Saray Walden MD Primary Care Provider + Allergies Active Allergy Reactions Criticality Noted Date Comments Penicillins Hives Medium 07/18/2024 Reaction: Hives, Medications loratadine (CLARITIN) 10 MG tablet Take 1 tablet (10 mg total) by mouth daily. Active Multiple Vitamin (MULTI VITAMIN OR) Take 1 tablet by mouth daily. Active valACYclovir (VALTREX) 500 MG tabletIndicatio ns:Herpes simplex virus (HSV) infection Take 1 tablet (500 mg total) by mouth daily. 90 tablet 3 07/18/2024 5 Active venlafaxine XR (EFFEXOR-XR) 37.5 MG 24 hr capsuleIndicati ons:ZIGGY (generalized anxiety disorder) Take 1 capsule (37.5 mg total) by mouth daily. 90 capsule 3 07/18/2024 5 Active buPROPion XL (WELLBUTRIN XL) 300 MG 24 hr tabletIndicatio ns:ZIGGY (generalized anxiety disorder) Take 1 tablet (300 mg total) by mouth every morning. 90 tablet 3 07/18/2024 5 Active LORazepam (ATIVAN) 0.5 MG tabletIndicatio ns:Panic attacks Take 1 tablet (0.5 mg total) by mouth daily as needed (panic attack). 6 tablet 10/01/2024 Active Active Problems Problem Noted Date Diagnosed Date ZIGGY (generalized anxiety disorder) 07/18/2024 Overview (10/01/2024): Saw previous PCP and tried fluoxetine but had 60 lb weight gain. Then discontinued and started wellbutrin. Noted improvement in fatigue. Persistent anxiety symptoms. Venlafaxine works well for family. Reports that symptoms did significantly improve with venlafaxine 37.5 mg daily. Her daughter was . She decided not to increase her venlafaxine to 75 mg daily. Lorazepam was effective to manage panic attacks and they have subsided since the wedding is finished. Assessment & Plan (10/01/2024 9:21 AM MAINTENANCE INSTRUCTOR): Chronic and controlled. Continue Wellbutrin, venlafaxine and rare use of lorazepam. Assessment & Plan (09/04/2024 3:33 PM CDT): Generalized anxiety is controlled but she is having some panic attacks. Discussed a short course of lorazepam to help with panic attacks. She will be cautious with use and this will be one fill only. If symptoms persist after her daughter is we will instead increase her venlafaxine to 75 mg daily. Assessment & Plan (07/18/2024 9:13 AM CDT): Not controlled. Cont wellbutrin and start trial venlafaxine. Herpes simplex virus (HSV) infection 07/18/2024 Overview (07/18/2024): Patient reports recurrent herpes simplex infections. She reports they occur every 2 weeks to every month and are extremely uncomfortable. Oral only. Assessment & Plan (07/18/2024 9:14 AM CDT): Frequent flares. Will initiate prophylaxis with daily valacyclovir treatment. Encounters Date Type Department Care Team Description 11/14/2024 iGen6 Message Enc [facility] Family Medicine - [place] [address] [place] [address] Saray Walden MD Dizziness and nausea 10/30/2024 MyChart Message Enc [facility] [address] [place] [address] Saray Walden MD Venlafaxine 10/01/2024 11:21 AM MAINTENANCE INSTRUCTOR - 10/01/2024 11:59 PM MAINTENANCE INSTRUCTOR Hospital Encounter [facility] [address] [place] [address] Saray Walden MD Discharge Disposition: Home or Self Care (Routine Discharge) 10/01/2024 9:10 AM MAINTENANCE INSTRUCTOR Office Visit [facility] [address] [place] [address] Saray Walden MD Anxiety; Senior Geologist Exam (Lps: 1-2 yrs normal/) 10/01/2024 Travel from Last 3 Months Immunizations Name Administration Dates Next Due Influenza (Generic) 08/30/2016 Influenza Adult (Generic) 09/29/2017 Tdap (Generic) 09/26/2016 Family History Medical History Relation Comments Anxiety Daughter 1 Depression Daughter 1 Heart Disease Mother Hypertension Mother Anxiety Sister 2 Relation Status Comments Daughter 1 Alive Daughter 2 Alive Daughter 3 Alive Father Unknown Mother Alive Sister 1 Alive Sister 2 Alive Social History Tobacco Use Types Packs/Day Years Used Date Smoking Tobacco: Never Passive Smoke Exposure: Never Smokeless Tobacco: Never Tobacco Cessation:Counseling Given: No Alcohol Use Standard Drinks/Week Comments Yes 0 (1 standard drink = 0.6 oz pur e alcohol) rare PHQ-2 Answer Date Recorded Patient Health Questionnaire-2 Score 1 10/01/2024 Comments Unknown Sex and Gender Information Value Date Recorded Sex Assigned at Female 07/16/2024 9:11 AM CDT Legal Sex Female 8:06 AM CDT Gender Identity Female 07/16/2024 9:11 AM CDT Sexual Orientation Straight 07/16/2024 9: 11 AM CDT Occupation Industry Job Start Date Job End Date [email or web address] Not on file Not on amaris e Not on file Last Filed Vital Signs Vital Sign Reading Time Taken Comments Blood Pressure 130/89 10/01/2024 9:00 AM MAINTENANCE INSTRUCTOR Pulse 79 10/01/2024 9:00 AM MAINTENANCE INSTRUCTOR Temperature 37.3 ??C (99.1 ??F) 10/01/2024 9:00 AM CS T Respiratory Rate 16 10/01/2024 9:00 AM MAINTENANCE INSTRUCTOR Oxygen Saturation 97% 10/01/2024 9:00 AM MAINTENANCE INSTRUCTOR Inhaled Oxygen Concentration - - Weight 67.1 kg (148 lb) 10/01/2024 9:00 AM MAINTENANCE INSTRUCTOR Height 165.1 cm (5' 5 ) 10/01/2024 9:00 AM MAINTENANCE INSTRUCTOR Body Mass Index 24.63 10/01/2024 9:00 AM MAINTENANCE INSTRUCTOR Plan of Treatment Health Maintenance Due Date Last Done Comments Hepatitis C 2003 Hepatitis B Vaccines (1 of - 19+ 3-dose series) 2004 COVID-19 Vaccine (2023-2 5 season) 2024 Influenza Adult (#1) 2024 09/29/2017, 08/30/2016 PHQ-2 (Physician [place]) 11/13/2024 10/01/2024 Annual Physical 07/18/2025 07/18/2024 DTaP, Tdap and Td Vaccines ( 2 - Td or Tdap) 09/26/2026 09/26/2016 Cervical Cancer Screening Pa p Smear (Age 30 to 64) Every 3 Years 10/01/2027 10/01/2024 Cervical Cancer Screening Pa p with HPV Testing (Age 30 to 64) Every 5 Years 10/01/2029 10/01/2024 Cervical Cancer Screening wi th HPV 10/01/2029 HPV Vaccines Aged Out No longer eligi ble based on patient's age to complete this topic Meningococcal B Vaccine Aged Out No l onger eligible based on patient's age to complete this topic Meningococcal Vaccine Aged Out No verenice rona eligible based on patient's age to complete this topic Pneumococcal Vaccine: Pediatrics (0 to 5 Years) and At-Risk Patients (6 to 64 Years) Aged Out No longer eligible b ased on patient's age to complete this topic RSV Immunizations Under 20 Months Aged Out No longer eligible b ased on patient's age to complete this topic Procedures Procedure Name Priority Date/Time Associated Diagnosis Comments CYTOPATH CERV/VAG THIN LAYER Routine 10/01/2024 2:38 PM MAINTENANCE INSTRUCTOR HUMAN PAPILLOMAVIRUS, HIGH-RISK TYPES Routine 10/01/2024 12:00 PM MAINTENANCE INSTRUCTOR from Last 3 Months Results * Cytopath Cerv/Vag Thin Layer (10/01/2024 2:38 PM MAINTENANCE INSTRUCTOR) THIN PREP PAP ? [facility] ?[address] ?[place] [address] ? Department of Pathology ? Pathology Report ? CERVICAL/VAGINAL PAP SMEAR REPORT Name: GONZALEZELKE ? Age: 4 1985 (Age: 39) ?Location: [facility] Sex: F ?Collected Date: 10/01/2024 Hospital #: [id number] ?Date Received: 10/02/2024 Date Reported: 10/07/2024 Provider: SARAY WALDEN MD INTERPRETATION CERVICAL/ENDOCERVI RONALD: ? SATISFACTORY FOR EVALUATION. ENDOCERVICAL/TRANS FORMATION ZONE COMPONENT ABSENT. ? NEGATIVE FOR INTRAEPITHELIAL LESION OR MALIGNANCY. NEGATIVE FOR HIGH RISK HPV. The FDA approved Aptima HPV assay is an in vitro nucleic acid amplification test for the qualitative detection of E6/E7 viral messenger RNA (mRNA) from 14 high-risk types of human papillomavirus (HPV) in cervical specimens. ??The high-risk HPV types detected by the assay include: 16,18,31,33,35,39, 45,51,52,56,58,59, 66, and 68. Electronically Signed Out By ARMAAN Ann (ASCP) CLINICAL HISTORY (Z12.4) CERVICAL CANCER SCREENING PAP TEST SCREENING ThinPrep Pap Test with HR HPV testing in patient > 30 years requested. Date of Last Menstrual Period: ? 09/17/2024 Menstrual Status: Regular SPECIMEN SUBMITTED CERVICAL/ENDOCERVI RONALD ?Specimen Received:1 Thin Prep Vial, Image Assisted Pap (SMD) ? Please note: The Pap smear is not a diagnostic test. ??It is a screening test. ??Negative results on combined screening (Pap test and HPV-DNA) have a high negative predictive value (99.1-100 percent) for cervical cancer. ??The pap test is not effective in detecting cervical adenocarcinoma. [facility] 10/01/2024 2:38 PM MAINTENANCE INSTRUCTOR 10/02/2024 2:38 PM MAINTENANCE INSTRUCTOR Comment:CERVICAL/ENDOCERVICA L us Saray Walden MD PATHOLOGY/CYTOLOGY ORDER YING Final Result [facility] [address] [place] [address], * HUMAN PAPILLOMAVIRUS, HIGH-RISK TYPES (10/01/2024 12:00 PM MAINTENANCE INSTRUCTOR) SPEC DESCRIPTION CERVIX 10/03/20 9:57 AM MAINTENANCE INSTRUCTOR [facility] HPV DNA HIGH RISK NEGATIVE NEGATIVE 10/05/2024 12:56 AM MAINTENANCE INSTRUCTOR [facility] Comment:SEE CYTOLOGY REPORT 10/01/2024 12:0 0 PM MAINTENANCE INSTRUCTOR us Saray Walden MD PATHOLOGY/CYTOLOGY ORDER YING Final Result [facility] [address] [place] [address], from Last 3 Months Insurance MELVINA Care Teams Galley Hand Relationship Specialty Start Date End Date Saray Walden MD [address] [place] [id number] PCP - General FAMILY PRACTICE 07/18/24
--- OUTSIDE RECORDS SUMMARY | 2024-12-11 09:03 | XMS_ITS | Clinical Summary ---
Author Organization [facility] Healthcare Address [address] [place] [address] Care Team Providers Care Cable Television Access Coordinator Name Role Phone Margarita Toledo Primary Care Provider Monse Leon DPM Unavailable [phone] Allergies Active Allergy Reactions Criticality Noted Date [...] mg total) by mouth daily 30 tablet 03/02/202 4 Active Active Problems Problem Noted Date [...] Quadrivalent, Spl it, Preservative Free, Intramuscular 09/29/2017 Surgical History Surgery Date Site/Laterality Comments CHOLECYSTECTOMY DILATION AND CURETTAGE OF UTERUS BUNIONECTOMY Left Medical History Medical History Date Comments PONV (postoperative nausea and vomiting) Anxiety Anxiety Family History Medical History Relation Name Comments Early Maternal Grandmother Heart attack Maternal Grandmother Heart disease Maternal Grandmother Early Mother's Sister Heart attack Mother's Sister Relation Name Status Comments Maternal Grandmother Mother's Sister Social History Tobacco Use Types Packs/Day Years [...] on file 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 Gender Identity Not on file Sexual Orientation Not on file Obstetrics History Last Filed Vital Signs Vital Sign Reading [...] 02/10/2024 7:14 PM CDT Plan of Treatment Health Maintenance Due Date Last Done Comments Cervical Cancer Screening 1985 Hepatitis C Screening 1985 Varicella Vaccines (1 of 2 - 13+ 2-dose series) 1998 Hepatitis B Screening 2003 Regular Well Visit/Exam 18-64 2003 Depression Screening 10/11/2018 10/11/2017, 09/29/2017 Influenza Vaccine (#1) 2024 7, 08/30/2016 DTaP/Tdap/Td Vaccine (2 - Td or Tdap) 09/26/2026 09/26/2016 HPV Vaccines Aged Out No longer eligi ble based on patient's age to complete this topic Pneumococcal vaccine <65 Aged Out No longer eligible based on patient's age to complete this topic Medical Devices Implanted Type Area Biochemistry Technologist Device Identifier Shelf Expiration Date Model / Serial / Lot [employer] Screw Bone Lapiplasty Select Ti Sk34 - [id number] Implanted:Qty: 1 on 06/16/2023 by Monse Leon DPM at [facility] Left: Foot [employer] [id number] 01/02/2028 SK34 / / [id number] [employer] Screw Bone Compression Cannulated Full Thread Locking Fastpitch 2.7mm Ti Sd22 - [id number] Implanted:Qty: 1 on 06/16/2023 by Monse Leon DPM at [facility] Left: Foot [employer] [id number] 02/29/2028 SD22 / / [id number] [employer] Screw Bone Compression Cannulated Full Thread Locking Fastpitch 2.7mm Ti Sd22 - [id number] Implanted:Qty: 1 on 06/16/2023 by Monse Leon, DPM at [facility] Left: Foot [employer] [id number] 03/15/2028 SD22 / / [id number] [employer] Max Vpc 2.5mm 16mm Cannulated Compression Headless Full Thread [id number] - [id number] Implanted:Qty: 1 on 06/16/2023 by Monse Leon, DPM at [facility] Left: Foot [employer] [id number] / / [employer] Screw Bone Compression Cannulated St Full Thread Locking Max Vpc 2.5x12mm Ti [id number] - [id number] Implanted:Qty: 1 on 06/16/2023 by Monse Leon, DPM at [facility] Left: Foot [employer] [id number] / / [employer] Screw Bone Compression Cannulated St Full Thread Locking Max Vpc 2.5x12mm Ti [id number] - [id number] Implanted:Qty: 1 on 01/12/2024 by Monse Leon, DPM at [facility] Right: Foot [employer] [id number] / / [employer] Screw Bone Compression Cannulated Full Thread Locking Fastpitch 2.7mm Ti Sd22 - [id number] Implanted:Qty: 1 on 01/12/2024 by Monse Leon, DPM at [facility] Right: Foot [employer] 12/11/2028 SD22 / / [id number] [employer] Screw Bone Compression Cannulated Full Thread Locking Fastpitch 2.7mm Ti Sd22 - [id number] Implanted:Qty: 1 on 01/12/2024 by Mnose Leon, DPM at [facility] Right: Foot [employer] [id number] 12/11/2028 SD22 / / [id number] [employer] Screw Bone Lapiplasty Select Ti Sk34 - [id number] Implanted:Qty: 1 on 01/12/2024 by Monse Leon, DPM at [facility] Right: Foot [employer] [id number] 06/13/2028 [facility] / / [id number] [employer] Max Vpc 2.5mm 16mm Cannulated Compression Headless Full Thread [id number] - [id number] Implanted:Qty: 1 on 01/12/2024 by Monse Leon DPM at [facility] Right: Foot [employer] [id number] / / Insurance [employer]UT [facility] Care Teams Cable Television Access Coordinator Relationship Specialty Start Date End Date Margarita Toledo PA [address] [place] [address] [place] [address] PCP - General 06/05/23 Monse Leon DPM [address] [place] [id number] Consulting Physician Foot and Ankle Surg 06/16/23
[2024-12-11 09:15] LABS: EDCOVIDSCREEN Negative (Negative); EDINFLUASCREEN Negative (Negative); EDINFLUBSCREEN Negative (Negative); EDSTREPNEGPOS1 Negative (Negative)
== END 2024-12-11 09:31 | disposition home or self-care (01) ==
PROVIDERS: Emergency Provider Nurse Practitioner Family; PCP Student in an Organized Health Care Education/Training Program
DX: B34.9 Viral infection, unspecified (principal); Z20.822 Contact with and (suspected) exposure to COVID-19
CPT/HCPCS: 87081; 87426; 87804; 87880; 99213; G0463

== ENCOUNTER 2025-08-18 09:20 | Emergency (ER) | payer OTHER, SELFPAY ==
[2025-08-18 09:32] VITALS: BP 108/66; PULSE 86; RESP 18; TEMP 36.9; O2SAT 98
--- NOTE | 2025-08-18 10:04 | ED.URI ---
HPI - URI/Sore Throat General Chief Complaint: Upper Respiratory Infection Stated Complaint: Sore throat / fever Time Seen by Provider: 08/18/25 09:55 Source: patient Mode of arrival: ambulatory Limitations: no limitations History of Present Illness HPI Narrative: Nai is a 40-year-old female patient presenting to the clinic today with complaints of sore throat, head congestion, low-grade fever, and body aches x1 day. Has taken ibuprofen for her symptoms. Rates pain 5/10 currently. Daughter is also sick in the clinic today and being evaluated. States highest temperature was 99? F. Related Data Home Medications ?Medication ?Instructions ?Recorded ?Confirmed ?Last Taken ?Type bupropion HCl 150 mg 24 hr tablet, 150 mg PO QAM 02/10/23 Unknown History extended release (Wellbutrin XL) Allergies Allergy/AdvReac Type Severity Reaction Status Date / Time Penicillins Allergy Mild Hives Verified 08/18/25 10:00 Review of Systems Review of Systems: Pertinent positives per HPI. Patient denies any, rash, headache, visual changes, dizziness, cough, shortness of breath, chest pain, palpitations, nausea, vomiting, diarrhea, constipation, abdominal pain, or any urinary issues. [facility] Past Medical History Medical History Cholecystectomy planned 2009 History of miscarriage 2014 Surgical History Surgical History H/O foot surgery Bunionectomy 01/12/2024 Right foot H/O dilation and curettage 2014 Family History Family History Grandparent Diabetes mellitus Cerebrovascular accident Mother Hypertension Social History Social History Smoking status: Never smoker Alcohol intake: never Substance use: never Lack of Transportation: No Lack of Food: Never True Current Housing: I Have Housing Concerned About Future Housing: No Difficulty Paying Gas/Electric Bills: No Difficulty Paying for Meds: No Currently Unemployed: YES Education: Trade/Vocational Certificate Difficulty w/ Childcare or Family Care: No Living arrangements: with family Occupation/Education: occupation Gender identity (if verbalized by the patient): Female Sexual Orientation (if Verbalized by the Patient): Straight or Heterosexual Spiritual care concerns: No Agree to blood products: Yes Comments At the time of my signature, I reviewed and agree with the nursing past medical, surgical, social, and family history. There is no relevant family history pertinent to the patient complaint. Exam Narrative: General: Well-developed, well nourished, in no apparent distress Head: Normocephalic, atraumatic Eyes: Pupils equally round and reactive to light bilaterally, EOM intact, sclera and conjunctive clear, no discharge, lids normal Ears: TMs intact and clear, ear canals clear, no drainage, grossly hearing normal. Nose: Nares patent, clear nasal discharge, mild inflammation, no sinus tenderness. Mouth: Oral pharynx red without lesions or masses, good dentition, MMM. Neck: Supple, trachea midline, no enlargement of anterior or posterior cervical nodes, no thyroid masses or goiter palpable. Cardio: Regular rate and rhythm, s1 and s2 normal, no murmur appreciated. Resp: Clear to auscultation bilaterally, no rhonchi, rales, wheezing or rubs Course Course Emergency Course: Portions of this record may have been created with voice recognition software. Level of Care: Express Care Visit Vital Signs Vital signs: Vital Signs Temperature 36.9 C 08/18/25 09:32 Pulse Rate 86 08/18/25 09:32 Respiratory Rate 18 08/18/25 09:32 Blood Pressure 108/66 08/18/25 09:32 Pulse Oximetry 98 08/18/25 09:32 Oxygen Delivery Room Air 08/18/25 09:32 Temperature 36.9 C 08/18/25 09:32 Pulse Rate 86 08/18/25 09:32 Respiratory Rate 18 08/18/25 09:32 Blood Pressure 108/66 08/18/25 09:32 Pulse Oximetry 98 08/18/25 09:32 Oxygen Delivery Room Air 08/18/25 09:32 Vital signs reviewed MDM - URI/Sore Throat MDM Narrative Medical decision making narrative: At the time of visit patient is resting comfortably on the exam table. Patient appears to be nontoxic. Complaints of sore throat, head congestion, low-grade fever, and body aches x1 day. Has taken ibuprofen for her symptoms. Rates pain 5/10 currently. Daughter is also sick in the clinic today and being evaluated. States highest temperature was 99? F. on exam patient has clear nasal drainage, TMs intact and clear, oral pharynx mildly red, no cervical lymphadenopathy, lung sounds are clear, heart rates regular rate rhythm, vital signs are stable. Strep test was ordered. COVID test was ordered Labs: COVID and strep test was performed and negative in the clinic today. We will send strep for culture. Plan: I suspect patient has URI/pharyngitis. Work note was given. Supportive measures were discussed with the patient and they voiced understanding discharge instructions and agrees to treatment plan. Return precautions reviewed Differential Diagnosis Differential diagnosis: Likely upper respiratory infection, otitis media, sinusitis, viral infection, bronchitis, influenza, pharyngitis and other (COVID) Lab Data Labs: Lab Results 08/18/25 08/18/25 Range/Units 10:07 10:27 POC SARS CoV-2 Ag Negative (Negative) POC Grp A Strep Screen Negative (Negative) Discharge Plan Discharge Clinical Impression: Pharyngitis, acute Qualifiers: Pharyngitis/tonsillitis etiology: unspecified etiology Qualified Code(s): J02.9 - Acute pharyngitis, unspecified URI (upper respiratory infection) Qualifiers: URI type: unspecified URI Qualified Code(s): J06.9 - Acute upper respiratory infection, unspecified Patient Disposition: Home Condition: Stable Instructions: Antibiotic Form, Pharyngitis (ED), Cold Symptoms (ED) Additional Instructions: Strep and COVID testing was negative in the clinic today. We will send strep for culture if this comes back positive we will contact him place you on antibiotics at that time. Increase fluids and stay well hydrated May take Tylenol or motrin as directed on bottle for pain/fever May use Flonase 1 spray in each nare daily May take OTC antihistamines such as Zyrtec or Claritin daily as directed on bottle May apply Vicks vapor rub to chest to open sinuses Sinus rinses for congestion Cepacol spray, cough drops, throat lozenges, warm tea with honey/lemon, gargle salt water to soothe throat BRAT diet for diarrhea Clear liquids x 24 hours then advance as tolerated for nausea/vomiting Go to the ED if you develop a worsening in your condition- high fever not controlled by Tylenol or Motrin, dehydration, weakness, lethargy, shortness of breath, or chest pain. Follow up with your PCP in 3-5 days if symptoms persist. Patient Language: Yakut Prescriptions: No Action bupropion HCl [Wellbutrin XL] 150 mg tablet extended release 24 hr 150 mg PO QAM Follow-up/Referrals: Lokesh,Saray Garcia MD [Primary Care Provider, Unknown] Stand Alone Forms: Work/School Release IP Time of Disposition: 10:22 Quality NIHSS Nursing Documentation ED NIHSS nursing documentation: reviewed/agree
--- OUTSIDE RECORDS SUMMARY | 2025-08-18 10:05 | XMS_ITS | Clinical Summary ---
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 Gender Identity Not on file Sexual Orientation Not on file Obstetrics History Last Filed Vital Signs Vital Sign Reading Time Taken Comments Blood Pressure 99/67 02/10/2024 8:00 PM CDT Pulse 79 02/10/2024 8:20 PM CDT Temperature 36.9 C (98.4 F) 02/10/2024 7:19 PM CDT Respiratory Rate 16 02/10/2024 7:14 PM CDT Oxygen Saturation 100% 02/10/2024 8:20 PM CDT Inhaled Oxygen Concentration - - Weight 61.2 kg (135 lb) 02/10/2024 7:14 PM CDT Height 165.1 cm (5' 5) 02/10/2024 7:14 PM CDT Body Mass Index 22.47 02/10/2024 7:14 PM CDT Plan of Treatment Health Maintenance Due Date Last Done Comments Breast Cancer Screening-Mammogram 1985 Cervical Cancer Screening 1985 Hepatitis C Screening 1985 Varicella Vaccines (1 of 2 - 13+ 2-dose series) 1998 Hepatitis B Screening 2003 Regular Well Visit/Exam 18-64 2003 HPV Vaccines (1 - 3-dose SCD M series) 2012 Depression Screening 10/11/2018 10/11/2017, 09/29/2017 Influenza Vaccine (#1) 2025 7, 08/30/2016 DTaP/Tdap/Td Vaccine (2 - Td or Tdap) 09/26/2026 09/26/2016 Pneumococcal vaccine <65 Aged Out No longer eligible based on patient's age to complete this topic Medical Devices Implanted Type Area Medical Driver Device Identifier Shelf Expiration Date Model / Serial / Lot [employer] Screw Bone Lapiplasty Select Ti Sk34 - [id number] Implanted:Qty: 1 on 06/16/2023 by Monse Leon DPM at [facility] Left: Foot [employer] [id number] 01/02/2028 SK34 / / [id number] [employer] Screw Bone Compression Cannulated Full Thread Locking Fastpitch 2.7mm Ti Sd22 - [id number] Implanted:Qty: 1 on 06/16/2023 by Monse Leon DPM at [facility] Left: Foot [employer] [id number] 02/29/2028 SD22 / / [id number] [employer] Screw Bone Compression Cannulated Full Thread Locking Fastpitch 2.7mm Ti Sd22 - [id number] Implanted:Qty: 1 on 06/16/2023 by Monse Leon, PAULINAM at [facility] Left: Foot [employer] [id number] 03/15/2028 SD22 / / [id number] [employer] Max Vpc 2.5mm 16mm Cannulated Compression Headless Full Thread [id number] - [id number] Implanted:Qty: 1 on 06/16/2023 by Monse Leon, DPM at [facility] Left: Foot [employer] [id number] / / [employer] Screw Bone Compression Cannulated St Full Thread Locking Max Vpc 2.5x12mm Ti [id number] - [id number] Implanted:Qty: 1 on 06/16/2023 by Monse Leon, PAULINAM at [facility] Left: Foot [employer] [id number] / / [employer] Screw Bone Compression Cannulated St Full Thread Locking Max Vpc 2.5x12mm Ti [id number] - [id number] Implanted:Qty: 1 on 01/12/2024 by Monse Leon, DPM at [facility] Right: Foot [employer] [id number] / / [employer] Screw Bone Compression Cannulated Full Thread Locking Fastpitch 2.7mm Ti Sd22 - [id number] Implanted:Qty: 1 on 01/12/2024 by Monse Leon, DPM at [facility] Right: Foot [employer] 12/11/2028 SD22 / / [id number] [employer] Screw Bone Compression Cannulated Full Thread Locking Fastpitch 2.7mm Ti Sd22 - [id number] Implanted:Qty: 1 on 01/12/2024 by Monse Leon, DPM at [facility] Right: Foot [employer] [id number] 12/11/2028 SD22 / / [id number] [employer] Screw Bone Lapiplasty Select Ti Sk34 - [id number] Implanted:Qty: 1 on 01/12/2024 by Monse Leon, DPM at [facility] Right: Foot [employer] [id number] 06/13/2028 34 / / [id number] [employer] Max Vpc 2.5mm 16mm Cannulated Compression Headless Full Thread [id number] - [id number] Implanted:Qty: 1 on 01/12/2024 by Monse Leon DPM at [facility] Right: Foot [employer] [id number] / / Insurance [facility] Care Teams Corral Boss Relationship Specialty Start Date End Date Margarita Toledo PA [address] [place] [address] [place] [address] PCP - General 06/05/23 Monse Leon DPM [address] [place] [id number] Consulting Physician Foot and Ankle Surg 06/16/23
--- OUTSIDE RECORDS SUMMARY | 2025-08-18 10:08 | XMS_ITS | Clinical Summary ---
Author Organization [facility] Address Formerly [facility] [place] [address] Care Team Providers Care Erp Analyst Name Role Phone Saray Walden MD Primary Care Provider + Allergies Active Allergy Reactions Criticality Noted Date Comments Penicillins Hives Medium 07/18/2024 Reaction: Hives, Medications loratadine (CLARITIN) 10 MG tablet Take 1 tablet (10 mg total) by mouth daily. Active Multiple Vitamin (MULTI VITAMIN OR) Take 1 tablet by mouth daily. Active LORazepam (ATIVAN) 0.5 MG tabletIndicatio ns:Panic attacks TAKE 1 TABLET(0.5 MG) BY MOUTH DAILY NEEDED FOR PANIC ATTACKS 6 tablet 05/20/2025 Active buPROPion XL (WELLBUTRIN XL) 300 MG 24 hr tabletIndicatio ns:ZIGGY (generalized anxiety disorder) TAKE 1 TABLET(300 MG) BY MOUTH EVERY MORNING 90 tablet 07/07/2025 Active Active Problems Problem Noted Date Diagnosed [...] finished. Assessment & Plan (10/01/2024 9:21 AM STITCHER STANDARD MACHINE): Chronic and controlled. Continue Wellbutrin, venlafaxine and [...] Will initiate prophylaxis with daily valacyclovir treatment. Immunizations Immunization Administration Dates Next Due Influenza (Generic) 08/30/2016 [...] Industry Job Start Date Job End Date [employer] Not on file Not on amaris e Not on file Last Filed Vital Signs Vital Sign Reading Time Taken Comments Blood Pressure 130/89 10/01/2024 9:00 AM STITCHER STANDARD MACHINE Pulse 79 10/01/2024 9:00 AM STITCHER STANDARD MACHINE Temperature 37.3 C (99.1 F) 10/01/2024 9:00 AM STITCHER STANDARD MACHINE Respiratory Rate 16 10/01/2024 9:00 AM STITCHER STANDARD MACHINE Oxygen Saturation 97% 10/01/2024 9:00 AM STITCHER STANDARD MACHINE Inhaled Oxygen Concentration - - Weight 67.1 kg (148 lb) 10/01/2024 9:00 AM STITCHER STANDARD MACHINE Height 165.1 cm (5' 5) 10/01/2024 9:00 AM STITCHER STANDARD MACHINE Body Mass Index 24.63 10/01/2024 9:00 AM STITCHER STANDARD MACHINE Plan of Treatment Health Maintenance Due Date Last Done Comments Hepatitis C 2003 Hepatitis B Vaccines (1 of 3 - 19+ 3-dose series) 2004 HPV Vaccines (1 - 3-dose SCD M series) 2012 PHQ-2 (Physician [place]) 11/13/2024 10/01/2024 Mammogram Screening 2025 COVID-19 Vaccine (1 - 2023-2 5 season) 2025 Annual Physical 07/18/2025 07/18/2024 Influenza Adult (#1) 2025 09/29/2017, 08/30/2016 DTaP, Tdap and Td Vaccines ( 2 - Td or Tdap) 09/26/2026 09/26/2016 Cervical Cancer Screening Pa p Smear (Age 30 to 64) Every 3 Years 10/01/2027 10/01/2024 Cervical Cancer Screening Pa p with HPV Testing (Age 30 to 64) Every 5 Years 10/01/2029 10/01/2024 Cervical Cancer Screening wi th HPV 10/01/2029 Meningococcal B Vaccine Aged Out No l onger eligible based on patient's age to complete this topic Meningococcal Vaccine Aged Out No verenice rona eligible based on patient's age to complete this topic Pneumococcal Vaccine: Pediatrics (0 to 5 Years) and At-Risk Patients (6 to 49 Years) Aged Out No longer eligible b ased on patient's age to complete this topic RSV Immunizations Under 20 Months Aged Out No longer eligible b ased on patient's age to complete this topic Procedures Procedure Name Priority Date/Time Associated Diagnosis Comments CYTOPATH CERV/VAG THIN LAYER Routine 10/01/2024 2:38 PM STITCHER STANDARD MACHINE HUMAN PAPILLOMAVIRUS, HIGH-RISK TYPES Routine 10/01/2024 12:00 PM STITCHER STANDARD MACHINE from Last 3 Months or Most Recently Relevant to Health Maintenance Results * Cytopath Cerv/Vag Thin Layer (10/01/2024 2:38 PM STITCHER STANDARD MACHINE) THIN PREP PAP [address] [address] Department of Pathology Pathology Report CERVICAL/VAGINAL PAP SMEAR REPORT Name: ELKE GONZALEZ Age: 4 1985 (Age: 39) Location: [facility] Sex: F Collected Date: 10/01/2024 [facility] #: [id number] Date Received: 10/02/2024 Date Reported: 10/07/2024 Provider: SARAY WALDEN MD INTERPRETATION CERVICAL/ENDOCERVI RONALD: SATISFACTORY FOR EVALUATION. ENDOCERVICAL/TRANS FORMATION ZONE COMPONENT ABSENT. NEGATIVE FOR INTRAEPITHELIAL LESION OR MALIGNANCY. NEGATIVE FOR HIGH RISK HPV. The FDA approved Aptima HPV assay is an in vitro nucleic acid amplification test for the qualitative detection of E6/E7 viral messenger RNA (mRNA) from 14 high-risk types of human papillomavirus (HPV) in cervical specimens. The high-risk HPV types detected by the assay include: 16,18,31,33,35,39, 45,51,52,56,58,59, 66, and 68. Electronically Signed Out By ARMAAN Ann (ASCP) CLINICAL HISTORY (Z12.4) CERVICAL CANCER SCREENING PAP TEST SCREENING ThinPrep Pap Test with HR HPV testing in patient > 30 years requested. Date of Last Menstrual Period: 09/17/2024 Menstrual Status: Regular SPECIMEN SUBMITTED CERVICAL/ENDOCERVI RONALD Specimen Received:1 Thin Prep Vial, Image Assisted Pap (SMD) Please note: The Pap smear is not a diagnostic test. It is a screening test. Negative results on combined screening (Pap test and HPV-DNA) have a high negative predictive value (99.1-100 percent) for cervical cancer. The pap test is not effective in detecting cervical adenocarcinoma. [facility] 10/01/2024 2:38 PM STITCHER STANDARD MACHINE 10/02/2024 2:38 PM STITCHER STANDARD MACHINE Comment:CERVICAL/ENDOCERVICA L Saray Walden MD PATHOLOGY/CYTOLOGY ORDER YING Final Result Performing Organization Address City/[facility] Co de Phone Number [facility] [address] [place] [address], [place] [phone] * HUMAN PAPILLOMAVIRUS, HIGH-RISK TYPES (10/01/2024 12:00 PM STITCHER STANDARD MACHINE) SPEC DESCRIPTION CERVIX 10/03/20 24 9:57 AM STITCHER STANDARD MACHINE [facility] HPV DNA HIGH RISK NEGATIVE NEGATIVE 10/05/2024 12:56 AM STITCHER STANDARD MACHINE [facility] Comment:SEE CYTOLOGY REPORT 10/01/2024 12:0 0 PM STITCHER STANDARD MACHINE Saray Walden MD PATHOLOGY/CYTOLOGY ORDER YING Final Result Performing Organization Address City/[facility] Co de Phone Number [facility] [address] [place] [address], [place] [phone] from Last 3 Months or Most Recently Relevant to Health Maintenance Insurance [employer] Care Teams Erp Analyst Relationship Specialty Start Date End Date Saray Walden MD [address] [facility] [address] [place] [address] PCP - General FAMILY PRACTICE 07/18/24
[2025-08-18 10:09] LABS: EDSTREPNEGPOS1 Negative (Negative)
[2025-08-18 10:29] LABS: EDCOVIDSCREEN Negative (Negative)
== END 2025-08-18 10:34 | disposition home or self-care (01) ==
PROVIDERS: Emergency Provider Nurse Practitioner Family; PCP Student in an Organized Health Care Education/Training Program
DX: J02.9 Acute pharyngitis, unspecified (principal); J06.9 Acute upper respiratory infection, unspecified; Z20.822 Contact with and (suspected) exposure to COVID-19
CPT/HCPCS: 87081; 87426; 87880; 99213; G0463

== ENCOUNTER 2025-08-22 15:02 | Emergency (ER) | payer OTHER, SELFPAY ==
[2025-08-22 15:09] VITALS: BP 117/71; PULSE 84; RESP 18; TEMP 37.1; O2SAT 99
--- NOTE | 2025-08-22 15:28 | ED.URI ---
HPI - URI/Sore Throat General Chief Complaint: Upper Respiratory Infection Stated Complaint: URI Time Seen by Provider: 08/22/25 15:29 History of Present Illness HPI Narrative: 40 y/o female presented for c/o nasal congestion, sinus pressure, and cough for one week. Says cough is 'barky' and worse at night causing difficulty sleeping. Endorses sore throat at onset which is improving. Taking Mucinex. Pt was seen in clinic for the same on 08/18. Tested negative for strep, and neg culture. Says she got the nasal spray today. Denies sob, wheezing, n/v/d/f/c. Related Data Home Medications ?Medication ?Instructions ?Recorded ?Confirmed ?Last Taken ?Type bupropion HCl 150 mg 24 hr tablet, 150 mg PO QAM 02/10/23 08/22/25 Unknown History extended release (Wellbutrin XL) Allergies Allergy/AdvReac Type Severity Reaction Status Date / Time Penicillins Allergy Mild Hives Verified 08/22/25 15:12 Review of Systems Review of Systems: CONSTITUTIONAL: Denies body aches, fever, chills, or sweats. EYES: Denies visual changes, redness, or discharge. ENT: reports sore throat rhinorrhea, congestion, Denies otalgia. CARDIOVASCULAR: Denies chest pain, palpitations, or edema. RESPIRATORY: Denies dyspnea. GASTROINTESTINAL: Denies abdominal pain, nausea, vomiting, or diarrhea. SKIN: Denies rash NEUROLOGIC: Denies headache PMF Past Medical History Medical History Cholecystectomy planned 2009 History of miscarriage 2014 Surgical History Surgical History H/O foot surgery Bunionectomy 01/12/2024 Right foot H/O dilation and curettage 2014 Family History Family History Grandparent Diabetes mellitus Cerebrovascular accident Mother Hypertension Social History Social History Smoking status: Never smoker Alcohol intake: never Substance use: never Lack of Transportation: No Lack of Food: Never True Current Housing: I Have Housing Concerned About Future Housing: No Difficulty Paying Gas/Electric Bills: No Difficulty Paying for Meds: No Currently Unemployed: YES Education: Trade/Vocational Certificate Difficulty w/ Childcare or Family Care: No Living arrangements: with family Occupation/Education: occupation Gender identity (if verbalized by the patient): Female Sexual Orientation (if Verbalized by the Patient): Straight or Heterosexual Spiritual care concerns: No Agree to blood products: Yes Exam Narrative: GENERAL: mildly Ill-appearing, no acute distress. EYES: conjunctivae clear ENT: Mucous membranes moist. Frontal and maxillary sinus tenderness. TMs unable to visualize bilaterally due to excess cerumen; no tragal tenderness. Oropharynx not erythematous without lesions. Tonsils not enlarged and without exudate. No drooling, no hoarseness, no trismus, uvula midline. No tripod positioning, hot potato voice, or soft palate swelling. NECK: Supple. No lymphadenopathy CHEST: Clear to auscultation, breath sounds equal. HEART: Regular rate and rhythm. No murmur heard. SKIN: Warm, dry, no rash. NEURO: Alert and oriented x3. Course Course Emergency Course: Patient is aware of diagnosis, understands and agrees to treatment plan. Anticipatory guidance given. Patient agrees to follow-up as directed and is aware of reasons to seek care at the emergency department. Portions of this record may have been created with voice recognition software Level of Care: Express Care Visit Vital Signs Vital signs: Vital Signs Temperature 98.7 F 08/22/25 15:09 Pulse Rate 84 08/22/25 15:09 Respiratory Rate 18 08/22/25 15:09 Blood Pressure 117/71 08/22/25 15:09 Pulse Oximetry 99 08/22/25 15:09 Oxygen Delivery Room Air 08/22/25 15:09 Temperature 98.7 F 08/22/25 15:09 Pulse Rate 84 08/22/25 15:09 Respiratory Rate 18 08/22/25 15:09 Blood Pressure 117/71 08/22/25 15:09 Pulse Oximetry 99 08/22/25 15:09 Oxygen Delivery Room Air 08/22/25 15:09 MDM - URI/Sore Throat MDM Narrative Medical decision making narrative: Discussed physical exam findings and reviewed RX. Pt tested negative for strep 08/18. Advised supportive measures and signs/symptoms to go to the ER. Pt is appropriate for outpt treatment and f/u. Differential Diagnosis Differential diagnosis: Likely upper respiratory infection, otitis media, sinusitis, viral infection, bronchitis, influenza and pharyngitis Discharge Plan Discharge Clinical Impression: Upper respiratory infection Patient Disposition: Home Condition: Stable Instructions: Antibiotic Form, Rhinosinusitis (ED) Additional Instructions: Recommendations: Flonase spray and Zyrtec (or Claritin/Sofia) over the counter Cough syrup may cause drowsiness; avoid driving or take it at night time. Tylenol 1000mg every 8 hours as needed for pain Rest, push fluids, and increase humidity of the air at home. If no improvement with the above measures, you can start the antibiotic Follow up with your primary care provider in 1 week. Go to the ER for worsening symptoms or concerns. Patient Language: Albanian Prescriptions: New benzonatate 200 mg capsule 200 mg PO TID PRN (Reason: cough) Qty: 20 0RF prednisone 20 mg tablet 40 mg PO DAILY 3 Days Qty: 6 0RF doxycycline hyclate 100 mg tablet 100 mg PO BID 5 Days Qty: 10 0RF No Action bupropion HCl [Wellbutrin XL] 150 mg tablet extended release 24 hr 150 mg PO QAM Follow-up/Referrals: Lokesh,Saray Garcia MD [Primary Care Provider, Unknown] Time of Disposition: 15:38
== END 2025-08-22 15:41 | disposition home or self-care (01) ==
PROVIDERS: Emergency Provider Nurse Practitioner Family; PCP Student in an Organized Health Care Education/Training Program
DX: J06.9 Acute upper respiratory infection, unspecified (principal)
CPT/HCPCS: 99213; G0463